=== PATIENT | female | born 1995 | race African-American/Black ===

== ENCOUNTER 2021-02-17 07:53 | Inpatient (IN) | payer OTHER, SELFPAY ==
[2021-02-17] VITALS (57 sets, daily range): BP systolic 112–137; BP diastolic 64–101; PULSE 53–241; RESP 12–18; TEMP 36.1–36.8; O2SAT 85–100; BMI 31.4
--- NOTE | 2021-02-17 08:21 | LDADM ---
This patient, Brianna Whipple, was admitted to Labor/Delivery/Recovery 118 on 02/17/21 at 07:53. Plans for labor, pain management and were discussed with patient. Patient/family oriented to hospital policies and general routines including ID bracelet, bed and alarms, visiting hours, pain management, procedures, bathroom and other care routines, personal items, smoking policy, room service/diet and guest tray routines, security routines, and visiting hours. Patient/Family are encouraged to report perceived risks to care and to ask questions if they do not understand what they are told or what they should do. See OBIX for further documentation.
[2021-02-17] MEDS: LACTATED RINGERS 1,000 ML 125 ML IV CONT ×2 (08:39→12:28)
[2021-02-17 08:43] LABS: Basophils Percent Auto 0.4 % (0.2-1.2); Eosinophils Percent Auto 0.5 % (0-4.4); Hematocrit 30.9 % (37.0-47.0); Hemoglobin 10.4 g/dL (12.0-15.0); Immature Granulocyte Absolute 0.04 K/mm3 (0.00-0.031); Immature Granulocyte Percent A 0.5 % (0-0.5); Lymphocytes Absolute Auto 1.83 K/mm3 (0.9-3.2); Lymphocytes Percent Auto 22.4 % (18.3-44.2); Mean Corpuscular HGB Conc 33.7 g/dl (32-36); Mean Corpuscular Hemoglobin 31.5 pg (26-34); Mean Corpuscular Volume 93.6 fl (80-100); Mean Platelet Volume 10.5 fl (7.4-10.4); Monocytes Absolute Auto 1.1 K/mm3 (0.1-0.6); Neutrophils Absolute Auto 5.2 K/mm3 (1.3-6.7); Neutrophils Percent Auto 63.2 % (45.5-73.1); Platelet Count Result 222 k/mm3 (150-375); Red Cell Distribution Width 14.8 % (11.5-14.5); White Blood Count 8.2 K/mm3 (4.5-10.0)
[2021-02-17 09:00] LABS: Amphetamine Screen Urine Negative (Negative); Barbiturate Screen Urine Negative (Negative); Benzodiazepines Screen Urine Negative (Negative); Cannabinoid Screen Urine Positive (Negative); Cocaine Screen Urine Negative (Negative); Methadone Screen Urine Negative (Negative); Opiate Screen Urine Negative (Negative); Phencyclidine Screen Urine Negative (Negative)
[2021-02-17 09:49] LABS: Glucose Point of Care 80 (65-105)
--- NOTE | 2021-02-17 10:03 | WPDANESEPPF ---
Anes - Initial Pre Proc Eval Procedure: Operation Date: 02/17/21 10:30 Proposed Procedures p Repeat Section With Tubal Ligation - Benito Hdez MD Date/Time: 02/17/21 10:03 Surgeon: Benito Hdez MD Pre Op Diagnosis: C/S Patient Data Age: 26 Gender: F Height: 5 ft 4 in Weight: 83 kg Last Vital Signs Pulse 83 02/17/21 09:31 BP 115/69 02/17/21 09:31 Allergies Allergy/AdvReac Type Severity Reaction Status Date / Time No Known Allergies Allergy Verified 02/17/21 08:38 Laboratory Tests 02/17/21 02/17/21 02/17/21 08:31 08:31 08:31 WBC 8.2 K/mm3 K/mm3 (4.5-10.0) RBC 3.30 M/mm3 L M/mm3 (4.2-5.4) Hgb 10.4 g/dL L g/dL (12.0-15.0) Hct 30.9 % L % (37.0-47.0) MCV 93.6 fl fl (80-100) MCH 31.5 pg pg (26-34) MCHC 33.7 g/dl g/dl (32-36) RDW 14.8 % H % (11.5-14.5) Plt Count 222 k/mm3 k/mm3 (150-375) MPV 10.5 fl H fl (7.4-10.4) Immature Gran % (Auto) 0.5 % % (0-0.5) Neut % (Auto) 63.2 % % (45.5-73.1) Lymph % (Auto) 22.4 % % (18.3-44.2) [place] % (Auto) 13.0 % H % (2.6-8.5) Eos % (Auto) 0.5 % % (0-4.4) Baso % (Auto) 0.4 % % (0.2-1.2) Lymph # (Auto) 1.83 K/mm3 K/mm3 (0.9-3.2) [place] # (Auto) 1.1 K/mm3 H K/mm3 (0.1-0.6) Eos # (Auto) 0.0 K/mm3 K/mm3 (0-0.3) Baso # (Auto) 0.0 K/mm3 K/mm3 (0.0-0.1) Abs Immat Gran (auto) 0.04 K/mm3 H K/mm3 (0.00-0.031) Absolute Neuts (auto) 5.2 K/mm3 K/mm3 (1.3-6.7) Absolute Nucleated RBC 0.0 K/mm3 K/mm3 (0.0-0.012) Nucleated RBC % 0.0 % % (0.0-0.2) POC Capillary Glucose Urine Opiates Screen Negative (Negative) Urine Methadone Screen Negative (Negative) Ur Barbiturates Screen Negative (Negative) Ur Phencyclidine Scrn Negative (Negative) Ur Amphetamine Screen Negative (Negative) U Benzodiazepines Scrn Negative (Negative) Urine Cocaine Screen Negative (Negative) U Cannabinoids Screen Positive A (Negative) RPR Pending Blood Type Antibody Screen 02/17/21 02/17/21 08:31 09:46 WBC RBC Hgb Hct MCV MCH MCHC RDW Plt Count MPV Immature Gran % (Auto) Neut % (Auto) Lymph % (Auto) [place] % (Auto) Eos % (Auto) Baso % (Auto) Lymph # (Auto) [place] # (Auto) Eos # (Auto) Baso # (Auto) Abs Immat Gran (auto) Absolute Neuts (auto) Absolute Nucleated RBC Nucleated RBC % POC Capillary Glucose 80 mg/dl mg/dl (65-105) Urine Opiates Screen Urine Methadone Screen Ur Barbiturates Screen Ur Phencyclidine Scrn Ur Amphetamine Screen U Benzodiazepines Scrn Urine Cocaine Screen U Cannabinoids Screen RPR Blood Type O Positive Antibody Screen Negative Patient hx anesthesia problems: other (She describes difficult epidural placement at [facility] in 2016 for scheduled C/S- patient preference) Family hx anesthesia problems: none [facility] Surgical History Surgical History (Updated 02/17/21 @ 10:03 by Eduardo Darnell MD) History of section Family History Family History Other Cancer of breast, female Social History Social History Smoking status: Never smoker Second hand tobacco smoke exposure: No Substance use: never Gender identity (if verbalized by the patient): Female Spiritual care concerns: No Anes - Eval
--- NOTE | 2021-02-17 10:35 | PM.IMHP ---
H&P: HPI History of Present Illness Date/Time: 02/17/21 10:35 this patient is a 26-year-old multiparous female at 39 weeks gestation who has a previous and unwanted fertility. We have agreed to perform repeat delivery and tubal ligation. She understands the risks. Patient understands that injuries may occur that result in prolonged hospitalization, more surgery, and severe illness. She denies any loss of fluid or vaginal bleeding. She denies any headache or blurry vision. She denies any chest pain or shortness of breath. She denies any nausea, vomiting, fever, chills. Chief Complaint: Term Review of Systems Constitutional: Constitutional: Reports no additional constitutional complaints, Denies fatigue, Denies headache(s), Denies lethargy and Denies weakness Eyes: Eyes: Reports no additional eye complaints, Denies blurry vision and Denies photophobia ENT: Reports as per HPI, Denies headache(s) and Denies neck pain Cardiovascular: Cardiovascular: Denies chest pain, Denies diaphoresis, Denies leg edema, Denies palpitations and Denies dyspnea Respiratory: Respiratory: Denies hemoptysis, Denies dyspnea and Denies wheezing Gastrointestinal: Gastrointestinal: Denies abdominal pain, Denies melena, Denies bloating, Denies hematochezia, Denies nausea and Denies vomiting Genitourinary: Genitourinary: Reports no additional female genitourinary complaints Musculoskeletal: Musculoskeletal: Denies joint swelling, Denies neck pain, Denies numbness and Denies stiffness Neurologic: Denies Abnormal speech present, Denies confusion, Denies headache(s), Denies numbness and Denies weakness Psychiatric: Psychiatric: Denies anxiety, Denies confusion, Denies depression, Denies homicidal ideation and Denies suicidal ideation Endocrine: Endocrine: Denies fatigue and Denies palpitations Allergic/Immunologic: Allergic/Immunologic: Denies wheezing PMFSH Surgical History Surgical History (Updated 02/17/21 @ 10:37 by Benito Hdez MD) History of section Family History Family History Other Cancer of breast, female Social History Social History Smoking status: Never smoker Second hand tobacco smoke exposure: No Substance use: never Gender identity (if verbalized by the patient): Female Spiritual care concerns: No Meds Home Medications and Allergies Allergies Allergy/AdvReac Type Severity Reaction Status Date / Time No Known Allergies Allergy Verified 02/17/21 08:38 Vital Signs Vital Signs - 24 hr 02/17/21 08:34 02/17/21 08:46 02/17/21 09:01 Pulse Rate 88 86 85 Blood Pressure 113/83 117/75 125/71 02/17/21 09:16 02/17/21 09:31 Pulse Rate 88 83 Blood Pressure 137/78 115/69 Exam Const: General: healthy appearing, comfortable and no acute distress; No confusion Orientation/consciousness: No confusion Eyes: Direct Ophthalmoscopy: No photophobia Resp: Auscultation: clear to auscultation bilaterally, no rales, no rhonchi and no wheezes Cardio: Rate: regular rate Heart sounds: no click, no murmurs and no rubs GI: Inspection: non-distended GI Palp: No abdominal tenderness Auscultation: normal bowel sounds Neuro: General: No confusion Speech: No Abnormal speech present Extrem: General: normal to inspection, no pedal edema and no calf tenderness H&P: Results Labs Labs: Short CBC 02/17/21 Range/Units 08:31 WBC 8.2 (4.5-10.0) K/mm3 Hgb 10.4 L (12.0-15.0) g/dL Hct 30.9 L (37.0-47.0) % Plt Count 222 (150-375) k/mm3 Assessment and Plan Assessment and plan (1) Term : Code(s): Z34.90 - Encounter for supervision of normal , unspecified, unspecified trimester Status: Acute (2) Encounter for female sterilization procedure: Code(s): Z30.2 - Encounter for sterilization Status: Acute (3) Pr
--- NOTE | 2021-02-17 10:38 | WPDHPUPDATE1 ---
History and Physical Update Update Date/Time: 02/17/21 10:38 History and Physical has been reviewed, including an updated exam of the patient. There are NO changes in the patient's condition. Risks, benefits, and alternatives have been discussed and questions answered. Patient agrees to proceed with procedure.
--- NOTE | 2021-02-17 11:43 | PM.PROC ---
Procedure Note - Detailed Date of procedure: 02/17/21 Pre-op diagnosis: C/S Unwanted fertility, previous delivery Post-op diagnosis: same Procedure performed: Repeat low-transverse delivery, tubal ligation Description of procedure: The patient was taken the operating room. She was prepped and draped in the dorsal supine position with leftward tilt after induction of spinal anesthetic. When anesthesia was found to be adequate a low-transverse skin incision was made and carried down to the level the fascia with the knife. The fascial incision was made at the midline with a scalpel. The fascial incision was extended laterally with Elam scissors. The fascia was tented upward superior and inferior with Mandie clamps. The rectus muscles were dissected off bluntly. The rectus muscles at the midline. The preperitoneal fat was dissected bluntly at the superior aspect of the separate the rectus muscles. The peritoneal cavity was entered bluntly in the same area. The peritoneal incision was extended superior and inferior with good position of bladder. Bladder blade was inserted. A low-transverse incision was made on the uterus with the scalpel. It was carried down the level of the amniotic cavity with a knife. The amniotic cavity bluntly. The uterine incision was made laterally with blunt traction. The infant was delivered. The cord was clamped and cut. The infant was handed off to waiting pediatric staff. Cord bloods were obtained. The placenta was removed manually. The uterus was exteriorized. Uterus cleared of all clots and debris. Uterus closed in 0 Vicryl in a running locked fashion. An imbricating layer of 0 Vicryl was also placed on the to bolster the closure. Fallopian tube was grasped in the ampullary region with a Vladimir. It was raised away from the accompanying vein. A window was created in the broad ligament in this area of the tube. 0 Vicryl was used to ligate the proximal distal ends of the skeletonize region of the tube. The segment of the tube was resected with scissors. The cut surfaces were cauterized. On the contralateral side the procedure was performed identically. The uterus was returned to the abdomen. The gutters were cleared of all clots and debris. The fascia was closed 0 Vicryl in a running fashion. Subcutaneous tissue was irrigated and bleeding areas were cauterized. The skin was closed with subcuticular absorbable luisana. The incision was covered with derma lennon. The patient tolerated the procedure well. She was taken recovery room stable condition. Sponge, lap, needle counts were correct x2. Anesthesia: spinal Surgeon: Benito Hdez MD Estimated blood loss (mL): 210 Drains: No Packing: No Pathology: none sent Complications: No immediate complications Condition: stable Disposition: floor Findings: Normal maternal anatomy. Average size with normal Apgars.
--- NOTE | 2021-02-17 12:24 | SUR.OPER ---
1148 HEAVYAMOUNT OF BLOOD CLOTS WAS EXTRACTED WITH FUNDAL MASSAGE. CALLED DR. SILVESTRE AND METHERGINE ORDER RECEIVED. METHERGINE IM WAS GIVEN BY Juanita PAGAN CLIENT RELATIONS ASSOCIATE
[2021-02-17] MEDS: OXYTOCIN 30 UNITS/NS 500 ML 30 UNITS/500 ML BAG 125 UNITS IV CONT (13:50)
--- NOTE | 2021-02-17 14:14 | PC.NURSE ---
Patient transferred to post room #287 per stretcher from labor and delivery. Support person present. Oriented to unit, room, information board, rooming in, admission packet and security measures. Patient verbalizes understanding.
[2021-02-18 04:30] VITALS: BP 113/70; PULSE 73; PULSE 79; RESP 16; TEMP 36.6; O2SAT 99
[2021-02-18] MEDS: IBUPROFEN 600 MG TABLET PO ×3 (04:44→20:12)
[2021-02-18] MEDS: HYDROcodone/acetaminophen (*CRX) 5-325 MG TABLET 1 TAB PO ×4 (04:44→23:43)
[2021-02-18 05:16] LABS: Basophils Percent Auto 0.1 % (0.2-1.2); Eosinophils Percent Auto 0.2 % (0-4.4); Hematocrit 29.3 % (37.0-47.0); Hemoglobin 9.7 g/dL (12.0-15.0); Immature Granulocyte Absolute 0.08 K/mm3 (0.00-0.031); Immature Granulocyte Percent A 0.5 % (0-0.5); Lymphocytes Absolute Auto 1.58 K/mm3 (0.9-3.2); Lymphocytes Percent Auto 9.1 % (18.3-44.2); Mean Corpuscular HGB Conc 33.1 g/dl (32-36); Mean Corpuscular Hemoglobin 31.2 pg (26-34); Mean Corpuscular Volume 94.2 fl (80-100); Monocytes Absolute Auto 1.7 K/mm3 (0.1-0.6); Monocytes Percent Auto 9.8 % (2.6-8.5); Neutrophils Percent Auto 80.3 % (45.5-73.1); Platelet Count Result 227 k/mm3 (150-375); Red Blood Count 3.11 M/mm3 (4.2-5.4); Red Cell Distribution Width 14.6 % (11.5-14.5); White Blood Count 17.4 K/mm3 (4.5-10.0)
[2021-02-18 06:59] LABS: Rapid Plasma Reagin Non-Reactive (NonReactive)
[2021-02-18 08:00] VITALS: BP 115/57; PULSE 75; RESP 18; TEMP 36.2; O2SAT 98
[2021-02-18] MEDS: POLYSACCHARIDE IRON COMPLEX 150 MG CAPSULE PO ×2 (08:21→17:01)
[2021-02-18] MEDS: DOCUSATE SODIUM 100 MG CAPSULE PO ×2 (08:21→17:01)
--- NOTE | 2021-02-18 08:25 | PM.OBPNVD ---
OB - PN: Subj Subjective Date/time seen: 02/18/21 08:25 Patient comments: no complaints, pain well controlled, tolerating diet and flatus present [place] baby status: doing well OB - PN: Obj Data Labs CBC & Chem 7: 02/18/21 04:37 Labs: Laboratory Results - last 24 hr 02/17/21 02/17/21 02/17/21 08:31 08:31 08:31 WBC 8.2 RBC 3.30 L Hgb 10.4 L Hct 30.9 L MCV 93.6 MCH 31.5 MCHC 33.7 RDW 14.8 H Plt Count 222 MPV 10.5 H Immature Gran % (Auto) 0.5 Neut % (Auto) 63.2 Lymph % (Auto) 22.4 [place] % (Auto) 13.0 H Eos % (Auto) 0.5 Baso % (Auto) 0.4 Lymph # (Auto) 1.83 [place] # (Auto) 1.1 H Eos # (Auto) 0.0 Baso # (Auto) 0.0 Abs Immat Gran (auto) 0.04 H Absolute Neuts (auto) 5.2 Absolute Nucleated RBC 0.0 Nucleated RBC % 0.0 POC Capillary Glucose Urine Opiates Screen Negative Urine Methadone Screen Negative Ur Barbiturates Screen Negative Ur Phencyclidine Scrn Negative Ur Amphetamine Screen Negative U Benzodiazepines Scrn Negative Urine Cocaine Screen Negative U Cannabinoids Screen Positive A RPR Non-reactive Blood Type Antibody Screen 02/17/21 02/17/21 02/18/21 08:31 09:46 04:37 WBC 17.4 H RBC 3.11 L Hgb 9.7 L Hct 29.3 L MCV 94.2 MCH 31.2 MCHC 33.1 RDW 14.6 H Plt Count 227 MPV 11.0 H Immature Gran % (Auto) 0.5 Neut % (Auto) 80.3 H Lymph % (Auto) 9.1 L [place] % (Auto) 9.8 H Eos % (Auto) 0.2 Baso % (Auto) 0.1 L Lymph # (Auto) 1.58 [place] # (Auto) 1.7 H Eos # (Auto) 0.0 Baso # (Auto) 0.0 Abs Immat Gran (auto) 0.08 H Absolute Neuts (auto) 14.0 H Absolute Nucleated RBC 0.0 Nucleated RBC % 0.0 POC Capillary Glucose 80 Urine Opiates Screen Urine Methadone Screen Ur Barbiturates Screen Ur Phencyclidine Scrn Ur Amphetamine Screen U Benzodiazepines Scrn Urine Cocaine Screen U Cannabinoids Screen RPR Blood Type O Positive Antibody Screen Negative OB - PN A/P Plan day: 1 Plan: routine care Time Spent With Patient Time: Total time spent is greater than 50% in coordination of care (as documented) at patient's floor/unit and/or counseling patient: Time with patient: less than 15 minutes Review of Systems Review of Systems: All systems reviewed & are unremarkable except as noted in HPI and below Exam Narrative: Exam Narrative: Fundus firm. Vaginal flow controlled. Incision dry and intact. Negative homans. No redness, warmth, or pain of lower ext. Const: General: comfortable Chest: Breast/axilla inspection: normal inspection of the breasts Resp: Effort & Inspection: normal respiratory effort Auscultation: clear to auscultation bilaterally Cardio: Rate: regular rate GI: GI Palp: Yes Soft to palpation Psych: Appearance: grossly normal Affect: normal affect Attitude: cooperative Thought content: Yes Normal thought content present Judgement: Good judgement present (Psych)
--- NOTE | 2021-02-18 13:01 | PCCCNOTE ---
Care Coordination Consult: Met with pt. today regarding concerns for marijuana use. This is pt.'s third child. Pt. lives at home with her mother Isabella. FOB is not involved and recently , support provided. Pt plans to use [facility] services at discharge. Has all necessary supplies for baby including a car seat, crib, clothing, diapers, and bottles. Pt. reports she will bottle feed baby at home. Pt. has family support including Isabella, other family and friends. resources provided. Pt. is interested in changing pediatricians at discharge, Nursing is aware and will provide pt. a list. Pt. is aware she tested positive for marijuana at admission, reports she recreationally uses marijuana. Baby Boy urine also positive for marijuana. Meconium is pending. Pt. denies any other substance use, denies reliance on substances and does not want substance abuse resources at this time. Pt. aware DCFS will be contacted to determine if they will meet with pt. or offer services at discharge. Submitted online DCFS report # [id number]. Received email confirmation that DCFS will not be taking a report and will not offer home services at discharge. Pt. aware and agreeable. Denies any further case management needs.
--- NOTE | 2021-02-18 14:46 | WPDANLDPN2 ---
Anes-Prog Note L&D Date/Time: 02/18/21 14:46 Comfortable throughout: labor and delivery Neuraxial method: epidural Epidural/Spinal procedure site: clean & non-tender Neuro status: Neuro function grossly intact. Cardiovascular status: normal Respiratory status: normal Airway patency: baseline Mental status: baseline Post-Op hydration status: normal Vital Signs: Last Vital Signs Temp 97.2 F L 02/18/21 08:00 Pulse 75 02/18/21 08:00 Resp 18 02/18/21 08:00 BP 115/57 L 02/18/21 08:00 Pulse Ox 98 02/18/21 08:00 Pain score (VAS): 0/10 I/O: Intake & Output 02/17/21 02/18/21 02/18/21 23:59 07:59 15:59 Intake Total 900 500 Output Total 1825 1300 Balance -925 -732 Patient feedback: Patient satisfied with anesthetic care.
--- NOTE | 2021-02-18 14:46 | WPDANLDNPN2 ---
Anes-Prog Note L&D-Neuraxial Date/Time: 02/18/21 14:46 Neuraxial medications: intrathecal PF morphine Opiod-related complaints: none Patient feedback: Patient satisfied with post-operative pain management.
[2021-02-18 20:00] VITALS: BP 128/66; PULSE 78; RESP 16; TEMP 37.3
[2021-02-18] MEDS: SIMETHICONE 80 MG TAB.CHEW PO ×2 (20:12→23:43)
--- NOTE | 2021-02-19 07:29 | PM.OBPNVD ---
OB - PN: Subj Subjective Date/time seen: 02/19/21 07:29 Patient comments: no complaints baby status: doing well OB - PN: Obj Data Labs CBC & Chem 7: 02/18/21 04:37 OB - PN A/P Time Spent With Patient Time: Total time spent is greater than 50% in coordination of care (as documented) at patient's floor/unit and/or counseling patient: Review of Systems Review of Systems: All systems reviewed & are unremarkable except as noted in HPI and below Exam Const: General: cooperative Orientation/consciousness: patient oriented x3 Psych: Appearance: grossly normal Affect: normal affect Attitude: cooperative Thought process: Normal thought process present Thought content: Yes Normal thought content present Insight: Good insight present (Psych) Judgement: Good judgement present (Psych)
[2021-02-19 08:10] VITALS: BP 122/80; PULSE 72; RESP 18; TEMP 36.8; O2SAT 95
[2021-02-19] MEDS: HYDROcodone/acetaminophen (*CRX) 5-325 MG TABLET 1 TAB PO ×2 (10:13→16:01)
[2021-02-19] MEDS: SIMETHICONE 80 MG TAB.CHEW PO ×2 (10:14→16:00)
[2021-02-19] MEDS: POLYSACCHARIDE IRON COMPLEX 150 MG CAPSULE PO (10:14)
[2021-02-19] MEDS: IBUPROFEN 600 MG TABLET PO ×2 (10:14→16:00)
[2021-02-19 10:15] VITALS: PULSE 72; RESP 18; O2SAT 95
[2021-02-19] MEDS: DOCUSATE SODIUM 100 MG CAPSULE PO (10:17)
--- NOTE | 2021-02-21 07:22 | PM.OBDSVD ---
DS: Admitting Diagnosis Admitting Diagnosis Admitting Diagnosis: rpt section OB - DS: Summary OB Procedures : None OB Procedures Intrapartum: OB Procedures: : None Peripartum Data Procedures: Procedures Operation Date: 02/17/21 10:30 Actual Procedures Side Surgeon p Repeat Section With Tubal Ligation Not Applicable Benito Hdez MD Time Spent with Patient Time attestation: Total time spent providing and/or coordinating discharge services: DS: Data Data Completed and Pending Pending studies at discharge: Pending at discharge 02/17/21 12:16 Surgical [PTH] Routine Labs on day of discharge: Preliminary micro results at discharge 02/17/21 12:44 Anaerobic Culture - Preliminary Amniotic Fluid Aerobic Culture - Preliminary Discharge Plan Discharge Attending physician on discharge: Benito Hdez Consulting providers: Khalida Anton ; Emma Jaime ; Eduardo Darnell Discharging Clinician: Khalida Anton Patient Disposition: Home, Self-Care Activity: pelvic rest Diet: regular Discharge Instructions: Education: Mom and Baby Guide Given to: Mother Follow-Up: Call your delivering provider's office for an appointment to be seen in: 1 Week Mom and baby should come to the [facility] for the follow-up appointment. Appointment Date/Time: February 20, 2021 at 10:00 am What to expect at your follow-up visit: Blood Pressure Check Physical Assessment Call [phone] if you are unable to keep your appointment time. BREAST CARE: * Wear a snug supportive bra. * For engorgement discomfort: Bottle Feeding: * May apply ice packs ABDOMINAL INCISION: (if applicable) * Allow incision to air dry * Do NOT use lotions for powders on your incision * When showering, allow soap and water to run over the incision, but do not wash incision PERINEAL CARE: * Until bleeding stops, use your naya bottle after urinating * Change your pad frequently throughout the day * No tub baths until seen by your physician - You may shower ACTIVITY: * Rest as much as possible. * Do not exercise or lift anything heavier than your baby (such as laundry or other children.) * Avoid stairs or driving as much as possible. * Do not put anything into the vagina. No douching, tampons, or sexual activity until seen by physician. NOTIFY PHYSICIAN IF YOU HAVE ANY QUESTIONS OR IF ANY OF THE FOLLOWING SYMPTOMS OCCUR: * If your incision becomes red, swollen, or more painful than what you have experienced in the hospital. * If your vaginal bleeding becomes foul smelling. * If your vaginal bleeding becomes more heavy than a period or if your bleeding changes from pink to bright red. However, you may pass an occasional walnut-sized clot once or twice for the first week . * If you experience a sharp, shooting pain in your calves. * If you discover a hard, reddened area on your breast or if you experience flu-like symptoms. DIET: * Eat regular, well-balanced meals. * Drink plenty of fluids daily. Stand Alone Forms: General Discharge Information Follow-up/Referrals: Benito Hdez MD [Physician] - 1 Week Discharge Medications: New hydrocodone-acetaminophen 5-325 mg Tablet 1 tablet PO Q3H PRN (Reason: Moderate Pain (4-6)) Qty: 20 RF: 0 Continued PNV [id number]-FA [] 28 mg iron- 800 mcg Tablet 1 tablet PO DAILY RF: 0 Date of admission: 02/17/21 07:53 Primary Care Provider: PHYSICIAN,BUSINESS PROCESS MANAGER Admitting Provider: Benito Hdez Attending physician on admission: Benito Hdez Condition: Stable
== END 2021-02-19 16:30 | disposition home or self-care (01) | DRG 540 ==
LOC: ANHLDR 07:58 → ANHOB2 14:20
PROVIDERS: Admitting Provider Obstetrics & Gynecology; Visit Provider Obstetrics & Gynecology
PROC: 10D00Z1 Extraction of Products of Conception, Low, Open Approach (ICD-10-PCS; CPT 59514; principal; 2021-02-17 10:30)
DX: O34.211 Maternal care for low transverse scar from previous cesarean delivery (principal); Z37.0 Single live birth; Z3A.39 39 weeks gestation of pregnancy; O99.324 Drug use complicating childbirth; F12.90 Cannabis use, unspecified, uncomplicated; Z30.2 Encounter for sterilization
CPT/HCPCS: 36415; 80307; 82948; 85025; 86592; 86850; 86900; 86901; 87070; 87075; 87077; 87205; 88302; 88307; A9270; J0131; J2210; J2590; J7120